=== PATIENT | female | born 1965 | race Caucasian/White ===

== ENCOUNTER → 2017-03-16 | Outpatient (CLI) | payer OTHER | LOC: FIMAGING 11:32 | PROVIDERS: ATTEND Internal Medicine | DX: Z12.31 Encounter for screening mammogram for malignant neoplasm of breast (principal) | CPT/HCPCS: G0202 ==

== ENCOUNTER → 2018-06-13 | Outpatient (CLI) | payer OTHER | LOC: FIMAGING 09:31 | PROVIDERS: ATTEND Internal Medicine | DX: Z12.31 Encounter for screening mammogram for malignant neoplasm of breast (principal) ==

== ENCOUNTER → 2018-06-28 | Outpatient (CLI) | payer OTHER | LOC: FIMAGING 09:50 | PROVIDERS: ATTEND Internal Medicine | DX: N60.12 Diffuse cystic mastopathy of left breast (principal) ==

== ENCOUNTER → 2018-07-25 | Day surgery (SDC) | payer OTHER ==
[~2018-07-25] MED LIST: BUPIVACAINE 0.5% 30 ML SDV ONE; LIDOCAINE 1% 300 MG/30 ML SDV ONE; THROMBIN (BOVINE) 5,000 UNIT VIAL TP ONE
== END | disposition home or self-care (01) ==
LOC: FIMAGING 07:02
PROVIDERS: ATTEND Internal Medicine
DX: D24.2 Benign neoplasm of left breast (principal); D24.1 Benign neoplasm of right breast; N60.82 Other benign mammary dysplasias of left breast; N60.11 Diffuse cystic mastopathy of right breast; R92.0 Mammographic microcalcification found on diagnostic imaging of breast

== ENCOUNTER 2018-09-06 06:46 | Day surgery (SDC) | payer OTHER ==
[2018-09-06] MEDS ORDERED: LIDOCAINE 1% 300 MG/30 ML SDV ONE (07:05)
[2018-09-06] MEDS ORDERED: LR 1,000 ML IV ONE (07:08)
[2018-09-06] MEDS ORDERED: LIDO/EPI 1% **for epidural** 30 ML SDV ONE (07:57)
[2018-09-06] MEDS ORDERED: BUPIVACAINE/EPI 0.5% 30 ML SDV ONE (07:57)
--- NOTE | 2018-09-06 08:06 | PDHPUP ---
History & Physical Update H&P update statement: This history and physical update is based on an assessment of the patient which was completed after admission or registration (within 24 hours), but prior to the surgery/procedure. H&P update: H&P reviewed & patient examined, no change in patient's condition since H&P completed
--- NOTE | 2018-09-06 08:07 | POSTOPPROG ---
Post Op Note Date of Operation: 09/06/18 Surgeon: Aditya Schwartz Anesthesiologist: Rylan Amanda Anesthesia: IV Sedation Pre-op Diagnosis: Left breast ADH Post-op Diagnosis: Same Procedure: Excisional left breast biopsy Findings: +clip Inf/Abcess present in the surg proc area at time of surgery?: No EBL: Minimal Specimen(s): left breast
[2018-09-06] MEDS ORDERED: MIDAZOLAM 2 MG/2 ML VIAL IVP ONE (08:51)
--- NOTE | 2018-09-06 08:52 | PDANEPAE ---
ANE History of Present Illness LEFT BREAST LUMPECTOMY ANE Past Medical History - Cardiovascular History Hx Hypertension: No Hx Arrhythmias: Yes Hx Chest Pain: No Hx Coronary Artery / Peripheral Vascular Disease: No Hx CHF / Valvular Disease: No Hx Palpitations: No Cardiovascular History Comment: hx of heart murmur - Pulmonary History Hx COPD: No Hx Asthma/Reactive Airway Disease: No Hx Recent Upper Respiratory Infection: No Hx Oxygen in Use at Home: No Hx Sleep Apnea: No Sleep Apnea Screening Result - Last Documented: Negative - Neurologic History Hx Cerebrovascular Accident: No Hx Seizures: No Hx Dementia: No - Endocrine History Hx Diabetes: No Hypothyroid: No Hyperthyroid: No Obesity: no - Renal History Hx Renal Disorders: No - Liver History Hx Hepatic Disorders: No - Neurological & Psychiatric Hx Hx Neurological and Psychiatric Disorders: Yes Neurological / Psychiatric History Comment: anxiety- mild - Cancer History Hx Cancer: No - Congenital Disorder History Hx Congenital Disorders: No - GI History Hx Gastrointestinal Disorders: No - Other Health History Other Health History: none - Chronic Pain History Chronic Pain: No - Surgical History Prior Surgeries: sinus surgery [id number]. heart cath as teenager for heart murmur ANE Review of Systems Review of Systems: - Exercise capacity METS (RN): 4 METS ANE Patient History - Allergies Allergies/Adverse Reactions: No Known Allergies Allergy (Verified 08/30/18 10:30) - Home Medications Home medications: home medication list seen and reviewed Home Medications: Advil 08/30/18 [Last Taken 08/30/18] FLUoxetine 08/30/18 [Last Taken 09/05/18 23:00] Herbals/Supplements -Info Only 08/30/18 [Last Taken 08/30/18] traZODone 08/30/18 [Last Taken 09/05/18 23:00] - NPO status NPO Since - Liquids (Date): 09/05/18 NPO Since - Liquids (Time): 21:00 NPO Since - Solids (Date): 09/05/18 NPO Since - Solids (Time): 21:00 - Anes Hx Anes Hx: no prior problems - Smoking Hx Smoking Status: Never smoked - Family Anes Hx Family Hx Anesthesia Complications: none ANE Labs/Vital Signs - Vital Signs Blood Pressure: 109/67 Heart Rate: 68 Respiratory Rate: 12 O2 Sat (%): 96 Height: 170.18 cm Weight: 65.771 kg ANE Physical Exam - Airway Neck exam: FROM Mallampati Score: Class 1 Mouth exam: normal dental/mouth exam - Pulmonary Pulmonary: no respiratory distress - Cardiovascular Cardiovascular: regular rate and rhythym - ASA Status ASA Status: II ANE Anesthesia Plan Anesthesia Plan: GA with mask
[2018-09-06] MEDS ORDERED: fentaNYL 100 MCG/2 ML INJ ONE (09:01)
[2018-09-06] MEDS ORDERED: PROPOFOL/EMULSION 500 MG/50 ML BOTTLE IV ONE (09:01)
[2018-09-06] MEDS ORDERED: LIDOCAINE 2% 5 ML SDV ONE (09:14)
[2018-09-06] MEDS ORDERED: KETOROLAC 30 MG/1 ML SDV ONE (09:15)
--- NOTE | 2018-09-06 09:19 | POSTANESTH ---
Post Anesthetic Evaluation Cardiovascular Status: Normal, Stable Respiratory Status: Normal, Stable Level of Consciousness/Mental Status: Can Participate in Eval, Alert and Oriented Pain Control: Adequate, Prn Tx Ordered Nausea/Vomiting Control: Adequate, Prn Tx Ordered Complications Possibly Related to Anesthesia: None Noted
[2018-09-06] MEDS ORDERED: oxyCODONE IR 5 MG TAB PO PRN (09:32)
[2018-09-06] MEDS ORDERED: HYDROCODONE/APAP 5/325 TAB PO PRN (09:32)
[2018-09-06] MEDS ORDERED: ALBUTEROL 3 ML DEYVIAL IH PRN (09:32)
[2018-09-06] MEDS ORDERED: LR 500 ML IV PRN (09:32)
[2018-09-06] MEDS ORDERED: ONDANSETRON 4 MG/2 ML VIAL IVP PRN (09:32)
[2018-09-06] MEDS ORDERED: fentaNYL 100 MCG/2 ML INJ IVP PRN (09:32)
[2018-09-06] MEDS ORDERED: ACETAMINOPHEN 500 MG TAB PO PRN (09:32)
[2018-09-06] MEDS ORDERED: NALOXONE HCL 0.4 MG/ML INJ IVP PRN (09:32)
--- NOTE | 2018-09-06 10:36 | GOP ---
[f rep st] OPERATIVE REPORT DATE OF OPERATION: 09/06/2018 SURGEON: Aditya Schwartz MD ANESTHESIA: MAC, Dr. Ventura. PREOPERATIVE DIAGNOSIS: Left breast ADH (atypical ductal hyperplasia). POSTOPERATIVE DIAGNOSIS: Left breast ADH (atypical ductal hyperplasia). PROCEDURE PERFORMED: Excision of left breast biopsy with mammographic localization. FINDINGS: INDICATIONS: 53-year-old female with recently diagnosed left breast microcalcifications. Core needl e sampling disclosed evidence of ADH. She is undergoing excisional biopsy at this time to rule out u ntoward diagnosis of malignancy. Risks and benefits were explained, including bleeding, infection, d ifferential diagnosis, as well as potential role for additional alternative therapies. All questions were answered. She desires to proceed. DESCRIPTION OF PROCEDURE: Upon returning from wire localization, monitored anesthesia was started. The left breast was infiltrated with 1% lidocaine and 0.5% Marcaine. A 12 o'clock circumareolar inci dash was created using electrocautery. The a wire was identified from beneath the surface of the ski n. A large core of tissue was dissected away encompassing the entire localization wire. Specimen wa s removed from the breast. Intraoperative fluoroscopy was used to identify show evidence of clip inclusion. Satisfactory hemostasis was assured. The breast was closed in layers with absorb able sutures followed by Dermabond. The patient was taken to recovery uneventfully. /[id number]/MODL
[2018-09-06 10:57] VITALS: BP 108/76
== END 2018-09-06 10:55 | disposition home or self-care (01) ==
LOC: FIMAGING 06:46
PROVIDERS: ATTEND Surgery
PROC: BH01ZZZ Plain Radiography of Left Breast (ICD-10-PCS; principal; 2018-09-06 09:45)
PROC: 0HBU0ZX Excision of Left Breast, Open Approach, Diagnostic (ICD-10-PCS; principal; 2018-09-06 09:45)
DX: N60.92 Unspecified benign mammary dysplasia of left breast (principal)
CPT/HCPCS: J1885; J2250; J2704; J3010